=== PATIENT | female | born 1970 | race Asian ===

== ENCOUNTER 2022-05-23 12:51 | Emergency (ER) | payer OTHER ==
[~2022-05-23] VITALS: Ht 160 cm; Wt 75.7 kg
[2022-05-23 13:09] VITALS: BP 146/96
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
[2022-05-23] MEDS ORDERED: ALBUTEROL 0.083% 2.5 MG/3 ML NEBU INH ONE (15:40)
[2022-05-23] MEDS ORDERED: IPRATROPIUM 0.02% 0.5 MG/2.5 ML NEBU INH ONE (15:40)
[2022-05-23] MEDS ORDERED: predniSONE 20 MG TAB PO ONE (15:40)
--- NOTE | 2022-05-23 15:42 | NUR ---
XRAY AT BEDSIDE
--- NOTE | 2022-05-23 15:42 | NUR ---
PT AMBULATED TO ROOM 8
--- NOTE | 2022-05-23 15:50 | NUR ---
RT AT BEDSIDE
[2022-05-23] MEDS ORDERED: PRED20TA5 PO ×2 (16:00→16:37)
[2022-05-23] MEDS ORDERED: FLOV250 INH ×2 (16:00→16:37)
[2022-05-23] MEDS ORDERED: MONT10TA35 PO ×2 (16:00→16:37)
[2022-05-23] MEDS ORDERED: ALBU0.0912 IH ×2 (16:00→16:37)
[2022-05-23 17:00] VITALS: BP 143/91
--- NOTE | 2022-05-23 17:00 | NUR ---
Patient discharged with v/s stable. Written and verbal after care instructions FOR SMOKE INHALATION AND ASTHMA given and explained. Patient alert, oriented and verbalized understanding of instructions. Ambulatory with steady gait. All questions addressed prior to discharge. ID band removed. Patient advised to follow up with PMD. Rx of ALBUTEROL SULFATE, FLOVENT HFA MDI, SINGULAIR AND DELTASONE given. Opportunity to ask questions provided and answered.
== END 2022-05-23 17:00 | disposition home or self-care (01) ==
LOC: MED 12:51
DX: T59.811A Toxic effect of smoke, accidental (unintentional), initial encounter (principal); J45.901 Unspecified asthma with (acute) exacerbation; Z79.899 Other long term (current) drug therapy; Y92.009 Unspecified place in unspecified non-institutional (private) residence as the place of occurrence of the external cause
CPT/HCPCS: 71045; 94640; 99283; J7512; J7613; J7644

== ENCOUNTER 2024-03-27 11:33 | Emergency (ER) | payer OTHER ==
[~2024-03-27] VITALS: Ht 160 cm; Wt 77.7 kg
[~2024-03-27 11:33] MED LIST: ALBU0.0912 IH; FLUT12AE6 INH; MONT-72 PO; PRED20TA5 PO
[2024-03-27 11:42] VITALS: BP 160/98; PULSE 92; RESP 18; TEMP 98; O2SAT 98
[2024-03-27] MEDS: predniSONE 20 MG TAB PO ONE (12:24)
[2024-03-27 12:49] VITALS: PULSE 72; RESP 12; O2SAT 96; O2SAT 97
[2024-03-27] MEDS: ALBUTEROL SULFATE/IPRATROPIU 3 ML SOL IH ONE (12:49)
[2024-03-27] MEDS ORDERED: PRED20TA5 PO (13:06)
[2024-03-27 13:17] VITALS: BP 145/88; PULSE 66; RESP 13; TEMP 98; O2SAT 98
== END 2024-03-27 13:17 | disposition home or self-care (01) ==
LOC: MED 11:33
DX: J45.901 Unspecified asthma with (acute) exacerbation (principal); I10 Essential (primary) hypertension; E78.5 Hyperlipidemia, unspecified; Z79.899 Other long term (current) drug therapy
CPT/HCPCS: 71045; 94640; 99283; J7512